=== PATIENT | female | born 1995 | race Two or more races ===

== ENCOUNTER 2020-08-27 03:35 | Inpatient (IN) | payer OTHER ==
[~2020-08-27] VITALS: Ht 154.9 cm; Wt 66.2 kg
[2020-08-27] MEDS ORDERED: IRON325 MG PO (03:47)
[2020-08-27] MEDS ORDERED: PRENATAL TABLE1 EAC1 PO (03:47)
== END 2020-08-29 10:48 | disposition home or self-care (01) | DRG 807 ==
LOC: OBS/DEL 03:35 → LDR 07:44 → OB/GYN 14:22
PROVIDERS: ADMIT Obstetrics & Gynecology; ATTEND Obstetrics & Gynecology
PROC: 10E0XZZ Delivery of Products of Conception, External Approach (ICD-10-PCS; principal; 2020-08-27)
PROC: 4A1HXFZ Monitoring of Products of Conception, Cardiac Rhythm, External Approach (ICD-10-PCS; 2020-08-27)
PROC: 0W8NXZZ Division of Female Perineum, External Approach (ICD-10-PCS; 2020-08-27)
PROC: 10907ZC Drainage of Amniotic Fluid, Therapeutic from Products of Conception, Via Natural or Artificial Opening (ICD-10-PCS; 2020-08-27)
DX: O60.14X0 Preterm labor third trimester with preterm delivery third trimester, not applicable or unspecified (principal); Z37.0 Single live birth; Z3A.36 36 weeks gestation of pregnancy; O24.429 Gestational diabetes mellitus in childbirth, unspecified control; Z20.828 Contact with and (suspected) exposure to other viral communicable diseases